=== PATIENT | male | born 2000 | race Caucasian/White ===

== ENCOUNTER 2021-07-31 18:33 | Emergency (ER) | payer OTHER ==
[~2021-07-31] VITALS: Ht 193 cm; Wt 86.5 kg
[2021-07-31] MEDS ORDERED: ONDANSETRON ODT8 MG PO (21:36)
[2021-07-31] MEDS ORDERED: CARAFATE1 GM PO (21:36)
[2021-07-31] MEDS ORDERED: PROTONIX20 MG PO (21:36)
[2021-07-31] MEDS ORDERED: LIDOCAINE HCL100 ML MT (23:49)
== END 2021-07-31 23:51 | disposition home or self-care (01) ==
LOC: ED 18:33
DX: K20.90 Esophagitis, unspecified without bleeding (principal); Z20.822 Contact with and (suspected) exposure to COVID-19
CPT/HCPCS: 36415; 74177; 80048; 81001; 83605; 85025; 96375; 99284-25; C9113; C9803; J1885; J2405; J3480; J7030; Q9967; U0003

== ENCOUNTER 2021-08-23 13:07 | Emergency (ER) | payer OTHER ==
[~2021-08-23] VITALS: Ht 193 cm; Wt 86.2 kg
[~2021-08-23 13:07] MED LIST: CARAFATE1 GM PO; LIDOCAINE HCL100 ML MT; ONDANSETRON ODT8 MG PO; PROTONIX20 MG PO
--- OUTSIDE RECORDS SUMMARY | 2021-08-23 13:14 | XMS ---
PreManage Notification: ESTELLE CABALLERO [employer] Events No recent Security Events currently on file CRITERIA MET - [facility] [place] - 2 Visits in 30 Days CARE PROVIDERS JU[facility] Current PHONE: [phone] Kerry has no Care Guidelines for this patient. E.Sylvia VISIT COUNT (12 MO.) 2 [facility] TOTAL 2 NOTE: Visits indicate total known visits. ED/UCC VISIT TRACKING (12 MO.) 08/23/2021 13:07 [facility] [place] TYPE: Emergency COMPLAINT: - MEDICAL CLEARANCE 07/31/2021 18:34 [facility] [place] TYPE: Emergency COMPLAINT: - FEVER DIAGNOSES: - Epigastric pain - Esophagitis, unspecified without bleeding INPATIENT VISIT TRACKING (12 MO.) No inpatient visits to display in this time frame [email or web address]
== END 2021-08-23 18:40 | disposition home or self-care (01) ==
LOC: ED 13:07
DX: F29 Unspecified psychosis not due to a substance or known physiological condition (principal)
CPT/HCPCS: 36415; 80053; 81001; 84443; 85025; 99284; G0480